=== PATIENT | female | born 1955 | race African-American/Black ===

== ENCOUNTER 2023-10-16 08:53 | Emergency (ER) | payer BC ==
[2023-10-16] MEDS ORDERED: Ibuprofen 200 MG TAB ONE (10:57)
[2023-10-16] MEDS ORDERED: HYDROcodone/Acetaminophen 5/325 mg Tablet ONE (10:58)
== END 2023-10-16 11:12 | disposition home or self-care (01) ==
LOC: ERS 08:53
DX: S42.212A Unspecified displaced fracture of surgical neck of left humerus, initial encounter for closed fracture (principal); E11.9 Type 2 diabetes mellitus without complications; I10 Essential (primary) hypertension; W18.2XXA Fall in (into) shower or empty bathtub, initial encounter
CPT/HCPCS: 24500

== ENCOUNTER 2024-04-11 14:23 | Outpatient (CLI) | payer BC | END 2024-04-11 14:24 | disposition home or self-care (01) | LOC: BICMAMMO 14:23 | PROVIDERS: ATTEND Internal Medicine | DX: Z13.820 Encounter for screening for osteoporosis (principal); Z78.0 Asymptomatic menopausal state | CPT/HCPCS: 77080 ==